=== PATIENT | female | born 1995 | race Caucasian/White ===

== ENCOUNTER → 2023-02-08 09:42 | Outpatient (CLI) | payer OTHER, SELFPAY ==
--- NOTE | ~2023-02-08 | US_ITS ---
EXAMINATION: US transvaginal DATE: 02/08/2023 10:05 INDICATION: Pelvic pain Comparison:No prior studies for comparison. TECHNIQUE: Multiple endovaginal sonographic images of the pelvis performed. FINDINGS: The uterus measures 6.9 x 3.1 x 4.7 cm. The endometrial complex measures 4 mm. The right ovary measures 2.8 x 2.4 x 2.4 cm and the left ovary measures 2.7 x 1.9 x 1.9 cm. There ar e small follicles in each ovary. Normal doppler signal in both ovaries. There is trace free fluid in the pelvis. There are no abnormal masses seen on either side. IMPRESSION: 1. Unremarkable pelvic ultrasound. Reviewed, dictated and finalized at location B. [facility]
== END ==
PROVIDERS: PCP Nurse Practitioner; Visit Provider Nurse Practitioner
DX: R10.2 Pelvic and perineal pain (principal)
CPT/HCPCS: 76830